=== PATIENT | female | born 1975 | race Caucasian/White ===

== ENCOUNTER → 2021-02-23 | Day surgery (SDC) | payer OTHER | END | disposition home or self-care (01) | LOC: FMAMMOTONE 08:09 | PROVIDERS: ATTEND Family Medicine | PROC: 0H9U3ZX Drainage of Left Breast, Percutaneous Approach, Diagnostic (ICD-10-PCS; principal; 2021-02-23) | DX: N60.12 Diffuse cystic mastopathy of left breast (principal) | CPT/HCPCS: 19081; 76098-TC-FY; 87899; 88305-TC; A4648 ==

== ENCOUNTER 2022-01-19 14:07 | Emergency (ER) | payer OTHER ==
[2022-01-19 14:30] VITALS: BP 119/91; PULSE 91; TEMP 98.1; BMI 43.4
== END 2022-01-19 15:27 | disposition home or self-care (01) ==
LOC: JER 14:07
DX: R42 Dizziness and giddiness (principal)
CPT/HCPCS: 82962; 93005; 93010; 99284-25

== ENCOUNTER 2022-03-10 14:57 | Emergency (ER) | payer OTHER ==
[2022-03-10] MEDS ORDERED: MECLIZINE HCL 25 MG TABLET (FP) PO ONE (15:09)
[2022-03-10] MEDS ORDERED: SODIUM CHLORIDE 0.9% 500 ML INFUS.BAG IV ONE (15:09)
[2022-03-10 15:13] VITALS: TEMP 98.8; BMI 44.4
[2022-03-10 15:34] LABS: EPI CELLS 3 /uL (0-25.1); HYALINE CASTS 0 /uL (0-3.1); PH,URINE 6.5 (5.0-8.0); URINE APPEARANCE CLEAR; URINE BACTERIA 121 /uL (0-1359); URINE BILIRUBIN NEGATIVE (NEGATIVE); URINE COLOR YELLOW; URINE GLUCOSE (UA) NEGATIVE (NEGATIVE); URINE KETONE NEGATIVE (NEGATIVE); URINE LEUK ESTERASE TRACE (NEGATIVE); URINE NITRITE NEGATIVE (NEGATIVE); URINE PROTEIN NEGATIVE (NEGATIVE); URINE RBC 4 /uL (0-23.9); URINE UROBILINOGEN 0.2 mg/dL (0.2-1.0); URINE WBC 8 /uL (0-25.8)
[2022-03-10] MEDS ORDERED: MECLIZINE HCL 25 MG TABLET (FP) ONE (15:35)
[2022-03-10 15:44] LABS: BASO % 0.4 % (0-2.0); EOS % 0.6 % (0-4.5); HEMATOCRIT 37.7 % (32.4-45.2); HEMOGLOBIN 12.5 GM/dL (10.7-15.3); LYMPH % 22.2 % (8-40); MCH 27.2 pg (25.7-33.7); MCHC 33.3 g/dl (32.0-36.0); MEAN CELL VOLUME 81.9 fl (80-96); MEAN PLT VOLUME 8.1 fl (7.5-11.1); NEUT % 72.8 % (42.8-82.8); PLATELET COUNT 233 10^3/uL (134-434); RBC 4.61 M/mm3 (3.60-5.2); RDW 14.3 % (11.6-15.6); VENOUS BASE EXCESS -1.1 mmol/L (-2-2); VENOUS O2 SATURATION 88.4 % (70-80); VENOUS PCO2 40.7 mmHg (38-52); VENOUS PH 7.386 (7.310-7.410); WHITE BLOOD COUNT 10.8 K/mm3 (4.0-10.0)
[2022-03-10 16:01] LABS: ALBUMIN 3.5 g/dl (3.4-5.0); CALCIUM 8.7 mg/dL (8.5-10.1)
[2022-03-10 16:04] LABS: CREATININE 0.6 mg/dL (0.55-1.3)
[2022-03-10 16:06] LABS: BILIRUBIN,TOTAL 0.3 mg/dL (0.2-1); TOT PROT 7.8 g/dl (6.4-8.2)
[2022-03-10 17:51] VITALS: BP 135/80; PULSE 79
== END 2022-03-10 20:03 | disposition home or self-care (01) ==
LOC: JER 14:57
DX: R42 Dizziness and giddiness (principal)
CPT/HCPCS: 36415; 70450-TC; 71045-TC-FY; 80053; 81003; 82010; 82803; 84484; 85025; 87086; 93005; 93010; 99283-25

== ENCOUNTER 2022-04-18 13:10 | Emergency (ER) | payer OTHER ==
[2022-04-18 13:23] VITALS: BP 146/76; PULSE 96; TEMP 98.3; BMI 44.4
[2022-04-18] MEDS ORDERED: SODIUM CHLORIDE 0.9% 500 ML INFUS.BAG IV ONE (14:56)
[2022-04-18 15:22] LABS: PH,URINE 7.5 (5.0-8.0); URINE APPEARANCE CLEAR; URINE BILIRUBIN NEGATIVE (NEGATIVE); URINE COLOR YELLOW; URINE GLUCOSE (UA) NEGATIVE (NEGATIVE); URINE KETONE NEGATIVE (NEGATIVE); URINE LEUK ESTERASE NEGATIVE (NEGATIVE); URINE NITRITE NEGATIVE (NEGATIVE); URINE PROTEIN NEGATIVE (NEGATIVE); URINE UROBILINOGEN 0.2 mg/dL (0.2-1.0)
[2022-04-18 15:33] LABS: EOS % 1.4 % (0-4.5); HEMATOCRIT 37.9 % (32.4-45.2); HEMOGLOBIN 12.7 GM/dL (10.7-15.3); LYMPH % 21.8 % (8-40); MCH 27.2 pg (25.7-33.7); MCHC 33.6 g/dl (32.0-36.0); MEAN PLT VOLUME 8.3 fl (7.5-11.1); MONO % 3.8 % (3.8-10.2); PLATELET COUNT 254 10^3/uL (134-434); RBC 4.68 M/mm3 (3.60-5.2); WHITE BLOOD COUNT 11.5 K/mm3 (4.0-10.0)
[2022-04-18 16:03] LABS: CALCIUM 8.8 mg/dL (8.5-10.1)
[2022-04-18 16:04] LABS: ALBUMIN 3.5 g/dl (3.4-5.0); BLOOD UREA NITROGEN 9.4 mg/dL (7-18)
[2022-04-18 16:05] LABS: MAGNESIUM 2.1 mg/dL (1.8-2.4)
[2022-04-18 16:07] LABS: CREATININE 0.5 mg/dL (0.55-1.3)
[2022-04-18 16:09] LABS: BILIRUBIN,TOTAL 0.4 mg/dL (0.2-1); TOT PROT 8.2 g/dl (6.4-8.2)
[2022-04-18 16:36] LABS: ANISOCYTOSIS 1+; MACROCYTOSIS 0; OVALOCYTE 1+
== END 2022-04-18 17:56 | disposition home or self-care (01) ==
LOC: JER 13:10
DX: R42 Dizziness and giddiness (principal); R53.83 Other fatigue
CPT/HCPCS: 36415; 71046-TC-FY; 80053; 81003; 83735; 84443; 85025; 93005; 93010; 99285-25

== ENCOUNTER 2023-03-26 18:15 | Emergency (ER) | payer OTHER ==
[2023-03-26 18:25] VITALS: BP 163/88; PULSE 86; RESP 16; TEMP 98.1; BMI 43.4
[2023-03-26] MEDS ORDERED: SODIUM CHLORIDE 0.9% 500 ML INFUS.BAG IV ONE (18:41)
[2023-03-26 19:19] LABS: BASO % 0.5 % (0-2.0); HEMOGLOBIN 12.9 GM/dL (10.7-15.3); LYMPH % 20.6 % (8-40); MCH 26.1 pg (25.7-33.7); MCHC 33.1 g/dl (32.0-36.0); MEAN CELL VOLUME 78.9 fl (80-96); MEAN PLT VOLUME 7.9 fl (7.5-11.1); MONO % 6.2 % (3.8-10.2); NEUT % 71.7 % (42.8-82.8); PLATELET COUNT 255 10^3/uL (134-434); RBC 4.95 M/mm3 (3.60-5.2); RDW 15.1 % (11.6-15.6); VENOUS BASE EXCESS -1.3 mmol/L (-2-2); VENOUS O2 SATURATION 86.4 % (70-80); VENOUS PCO2 38.3 mmHg (38-52); VENOUS PH 7.4 (7.310-7.410); WHITE BLOOD COUNT 13.7 K/mm3 (4.0-10.0)
[2023-03-26 19:21] LABS: EPI CELLS 17 /uL (0-25.1); HYALINE CASTS 1 /uL (0-3.1); URINE APPEARANCE CLEAR; URINE BACTERIA 166 /uL (0-1359); URINE BILIRUBIN NEGATIVE (NEGATIVE); URINE COLOR YELLOW; URINE GLUCOSE (UA) NEGATIVE (NEGATIVE); URINE KETONE NEGATIVE (NEGATIVE); URINE LEUK ESTERASE 3+ (NEGATIVE); URINE NITRITE NEGATIVE (NEGATIVE); URINE PROTEIN TRACE (NEGATIVE); URINE RBC 14 /uL (0-23.9); URINE UROBILINOGEN 0.2 mg/dL (0.2-1.0); URINE WBC 215 /uL (0-25.8)
[2023-03-26 19:38] LABS: POTASSIUM 3.9 mmol/L (3.5-5.1)
[2023-03-26 19:40] LABS: CALCIUM 8.8 mg/dL (8.5-10.1)
[2023-03-26 19:41] LABS: ALBUMIN 3.3 g/dl (3.4-5.0); BLOOD UREA NITROGEN 8.8 mg/dL (7-18); MAGNESIUM 1.8 mg/dL (1.8-2.4)
[2023-03-26 19:44] LABS: CREATININE 0.5 mg/dL (0.55-1.3)
[2023-03-26 19:45] LABS: BILIRUBIN,TOTAL 0.6 mg/dL (0.2-1); TOT PROT 8.1 g/dl (6.4-8.2)
[2023-03-26] MEDS ORDERED: CEPHALEXIN MONOHYDRATE 500 MG CAPSULE (UD) PO ONE (20:28)
[2023-03-26 20:46] LABS: HCG,QUALITATIVE URINE Negative
[2023-03-26] MEDS ORDERED: CEPHALEXIN MONOHYDRATE 500 MG CAPSULE (UD) ONE (20:51)
== END 2023-03-26 20:59 | disposition home or self-care (01) ==
LOC: JER 18:15
DX: E11.65 Type 2 diabetes mellitus with hyperglycemia (principal); N39.0 Urinary tract infection, site not specified; R35.0 Frequency of micturition; R10.32 Left lower quadrant pain; R63.1 Polydipsia; K59.00 Constipation, unspecified
CPT/HCPCS: 36415; 80053; 81003; 82010; 82803; 83735; 84703; 85025; 87086; 87186; 93005; 93010; 99284-25

== ENCOUNTER 2023-06-20 18:19 | Emergency (ER) | payer OTHER ==
[2023-06-20 18:27] VITALS: TEMP 98.1; BMI 43.4
[2023-06-20 19:39] LABS: BASO % 0.3 % (0-2.0); EOS % 2.7 % (0-4.5); HEMOGLOBIN 12.7 GM/dL (10.7-15.3); LYMPH % 27.4 % (8-40); MCH 26.6 pg (25.7-33.7); MCHC 33.3 g/dl (32.0-36.0); MEAN CELL VOLUME 79.8 fl (80-96); MEAN PLT VOLUME 7.8 fl (7.5-11.1); NEUT % 63.6 % (42.8-82.8); PLATELET COUNT 224 10^3/uL (134-434); RBC 4.76 M/mm3 (3.60-5.2); RDW 14.8 % (11.6-15.6); WHITE BLOOD COUNT 10.1 K/mm3 (4.0-10.0)
[2023-06-20 19:55] LABS: POTASSIUM 4.1 mmol/L (3.5-5.1)
[2023-06-20 19:58] LABS: BLOOD UREA NITROGEN 12.1 mg/dL (7-18); CALCIUM 8.3 mg/dL (8.5-10.1)
[2023-06-20 19:59] LABS: ALBUMIN 3.1 g/dl (3.4-5.0)
[2023-06-20 20:01] LABS: CREATININE 0.6 mg/dL (0.55-1.3)
[2023-06-20 20:03] LABS: BILIRUBIN,TOTAL 0.3 mg/dL (0.2-1); TOT PROT 7.7 g/dl (6.4-8.2)
[2023-06-20 21:18] VITALS: BP 122/78; PULSE 76; RESP 18
== END 2023-06-20 21:18 | disposition home or self-care (01) ==
LOC: JER 18:19
DX: E04.1 Nontoxic single thyroid nodule (principal); R59.9 Enlarged lymph nodes, unspecified; R74.01 Elevation of levels of liver transaminase levels; R22.1 Localized swelling, mass and lump, neck
CPT/HCPCS: 36415; 76536-TC; 80053; 84439; 84443; 85025; 99284-25